=== PATIENT | female | born 1995 | race African-American/Black ===

== ENCOUNTER 2018-01-11 16:31 | Emergency (ER) | payer OTHER | END 2018-01-11 19:04 | disposition home or self-care (01) | LOC: M ED 16:31 | DX: O99.89 Other specified diseases and conditions complicating pregnancy, childbirth and the puerperium (principal); N90.7 Vulvar cyst; Z3A.00 Weeks of gestation of pregnancy not specified; Z79.899 Other long term (current) drug therapy | CPT/HCPCS: 99283 ==

== ENCOUNTER 2018-02-23 07:43 | Emergency (ER) | payer OTHER | END 2018-02-23 09:33 | disposition home or self-care (01) | LOC: M ED 07:43 | DX: O99.89 Other specified diseases and conditions complicating pregnancy, childbirth and the puerperium (principal); R22.41 Localized swelling, mass and lump, right lower limb; O99.413 Diseases of the circulatory system complicating pregnancy, third trimester; I87.2 Venous insufficiency (chronic) (peripheral); Z3A.35 35 weeks gestation of pregnancy | CPT/HCPCS: 93971 ==

== ENCOUNTER 2018-03-29 21:06 | Inpatient (IN) | payer OTHER ==
[2018-03-29] MEDS: PENICILLIN G POTASSIUM IV 5 MU in D5W MINI-BAG PLUS 100 ML IV (22:23)
[2018-03-29 22:25] LABS: BASO % 0.4 % (0.0-1.0); EOS # 0.1 10^3/uL (0.0-0.50); HEMOGLOBIN 10.4 g/dl (12.0-15.5); IMMATURE GRANULOCYTE % 0.7 % (0-3.0); LYMPH % 21.7 % (24.0-44.0); MEAN CORPUSCULAR HEMOGLOBIN 26.3 pg (27.0-33.0); MEAN CORPUSCULAR HGB CONC 32.5 g/dl (32.0-36.5); MONO # 1.2 10^3/uL (0.0-0.8); MONO % 12.9 % (0.0-5.0); NEUTROPHILS # 5.8 10^3/uL (1.8-7.7); NEUTROPHILS % 63.3 % (36.0-66.0); PLATELET COUNT, AUTOMATED 238 10^3/uL (150-450); RED BLOOD COUNT 3.95 10^6/uL (4.00-5.40); WHITE BLOOD COUNT 9.1 10^3/uL (4.0-10.0)
[2018-03-29 22:29] LABS: APPEARANCE, URINE HAZY (CLEAR); BACTERIA, URINE AUTO NEGATIVE (NEGATIVE); BILIRUBIN, URINE AUTO NEGATIVE (NEGATIVE); BLOOD, URINE BLOOD 3+ (NEGATIVE); COLOR, URINE YELLOW (YELLOW); GLUCOSE, URINE (UA) AUTO NEGATIVE (NEGATIVE); KETONE, URINE AUTO NEGATIVE (NEGATIVE); LEUKOCYTE ESTERASE, URINE AUTO NEGATIVE (NEGATIVE); MUCUS, URINE SMALL (NEGATIVE); NITRITE, URINE AUTO NEGATIVE (NEGATIVE); PROTEIN, URINE AUTO 3+ mg/dL (NEGATIVE); RBC, URINE AUTO 9 /HPF (0-3); SPECIFIC GRAVITY URINE AUTO 1.013 (1.002-1.035); SQUAMOUS EPITHELIAL CELL UR AU 2 /HPF (0-6); UROBILINOGEN, URINE AUTO 0.2 mg/dL (0.0-2.0); WBC, URINE AUTO 10 /HPF (0-3)
[2018-03-29 23:28] LABS: ALT/SGPT 12 U/L (12-78); AST/SGOT 13 U/L (7-37); BILIRUBIN,TOTAL 0.3 MG/DL (0.2-1.0); CREATININE FOR GFR 0.87 MG/DL (0.55-1.30); GLOMERULAR FILTRATION RATE > 60.0 (>60); LDH LACTATE DEHYDROGENASE 265 U/L (84-246)
[2018-03-30] MEDS ORDERED: FENTANYL 2MCG/ML ROPIVACAINE 0.2% IN 0.9% NACL 200ML IVBAG As Ordered (00:34)
[2018-03-30] MEDS ORDERED: REFRIGERATOR IV KEYS XX (03:00)
[2018-03-30] MEDS ORDERED: EPIDURAL/PCA KEYS XX (03:00)
[2018-03-30] MEDS ORDERED: NALOXONE INJ 0.4 MG/1 ML VIAL (J2310) IV ×3 (03:00→11:45)
[2018-03-30] MEDS: FENTANYL/ROPIVACAINE/NACL BAG 200 ML EPIDURAL (03:00)
[2018-03-30] MEDS ORDERED: diphenhydrAMINE INJ 50MG/ML VIAL (J1200) IV (03:00)
[2018-03-30] MEDS ORDERED: EPIDURAL COMMENT XX (03:00)
[2018-03-30] MEDS ORDERED: ePHEDrine SULFATE 25 MG/5 ML(5MG/ML) SYRINGE IV (03:00)
[2018-03-30] MEDS ORDERED: LACTATED RINGER'S 1000 ML IV (03:00)
[2018-03-30] MEDS: PENICILLIN G POTASSIUM IV 2.5 MU in APPROPRIATE DILUENT 1 EA IV ×2 (03:35→07:52)
[2018-03-30] MEDS: OXYTOCIN DRIP 30 UNITS in APPROPRIATE DILUENT 1 EA IV ×2 (03:51→13:08)
[2018-03-30] MEDS: LR 1,000 ML IV ×4 (03:57→17:13)
[2018-03-30] MEDS ORDERED: BICITRA 30ML SOLN UDC As Ordered (10:06)
[2018-03-30] MEDS ORDERED: ceFAZolin 2 GM/D5W 50 ML IV BAG (J0690 PER 500MG) As Ordered (10:06)
[2018-03-30] MEDS: BICITRA 30ML SOLN UDC PO (10:15)
[2018-03-30] MEDS ORDERED: LIDOCAINE 2% W/EPIN INJ 20ML **PRES FREE As Ordered (10:48)
[2018-03-30] MEDS ORDERED: OXYTOCIN INJ 10 UNITS/ML VIAL (J2590) As Ordered (10:48)
[2018-03-30] MEDS ORDERED: SODIUM BICARBONATE 8.4% INJ 50 ML SYRINGE As Ordered (10:48)
[2018-03-30] MEDS ORDERED: PHENYLephrine HCL 500 MCG/5 ML (100MCG/ML) SYRINGE (J2370) As Ordered (10:48)
[2018-03-30] MEDS ORDERED: MORPHINE PRES-FREE INJ 10 MG/10 ML VIAL (J2274) As Ordered (10:48)
[2018-03-30] MEDS ORDERED: ONDANSETRON 4MG/2ML VIAL (J2405) As Ordered (10:48)
[2018-03-30] MEDS ORDERED: KETOROLAC 60 MG/2 ML VIAL (J1885) As Ordered (10:48)
[2018-03-30] MEDS ORDERED: ePHEDrine SULFATE 25 MG/5 ML(5MG/ML) SYRINGE As Ordered (10:48)
[2018-03-30] MEDS ORDERED: dexameTHASONE 4 MG/ML 1ML VIAL (J1100) As Ordered (10:48)
[2018-03-30] MEDS ORDERED: MIDAZOLAM INJ 2 MG/2 ML VIAL (J2250) As Ordered (11:40)
[2018-03-30] MEDS ORDERED: KETAMINE HCL 200 MG/20 ML VIAL As Ordered (11:40)
[2018-03-30] MEDS ORDERED: METOCLOPRAMIDE INJ 10MG/2ML VIAL (J2765) IV (11:45)
[2018-03-30] MEDS ORDERED: NALBUPHINE HCL 10 MG/ML AMP (J2300) IV ×2 (11:45→12:45)
[2018-03-30] MEDS ORDERED: ONDANSETRON 4MG/2ML VIAL (J2405) IV ×2 (11:45→12:45)
[2018-03-30 11:47] LABS: CORD GAS ABE V -2.5; CORD GAS HCO3 V 24.2 MEQ/L; CORD GAS O2 SAT V 58.6 %; CORD GAS PH V 7.311 UNITS; CORD GAS PO2 V 25.8 mmHg; CORD GAS SBC V 21.4 MEQ/L; CORD GAS TCO2 V 25.7 MEQ/L
[2018-03-30] MEDS ORDERED: MEASLES,MUMPS,RUBELLA VACCINE INJ (MMR-II) (90707) SC (12:30)
[2018-03-30] MEDS: CARBOPROST TROMETHAMINE 250 MCG/ML AMP IM (12:30)
[2018-03-30] MEDS: miSOPROStol 200 MCG TAB (S0191) PR (12:30)
[2018-03-30] MEDS ORDERED: PERCOCET 5MG/325MG TAB PO ×2 (12:30→12:45)
[2018-03-30] MEDS ORDERED: LOPERAMIDE 2 MG CAP PO (12:30)
[2018-03-30] MEDS ORDERED: RHOGAM 300 MCG (1500 IU) INJ (J2790) IM (12:30)
[2018-03-30] MEDS ORDERED: MORPHINE 10 MG/ML 1ML VIAL (J2270) IV (12:45)
[2018-03-30] MEDS ORDERED: fentaNYL 100 MCG/2 ML INJECTION (J3010) IV (12:45)
[2018-03-30] MEDS ORDERED: PERCOCET 5MG/325MG TAB As Ordered (13:07)
[2018-03-30] MEDS: LOPERAMIDE 2 MG CAP PO (13:07)
[2018-03-30] MEDS: PERCOCET 5MG/325MG TAB PO ×2 (13:08→14:33)
[2018-03-30] MEDS: KETOROLAC 30 MG/ML VIAL (J1885) IV ×2 (16:58→23:03)
[2018-03-30] MEDS: LR 500 ML IV ×2 (19:50→22:52)
[2018-03-30] MEDS: DOCUSATE SODIUM 100 MG CAP PO (21:15)
[2018-03-30] MEDS: ONDANSETRON 4MG/2ML VIAL (J2405) IV (21:17)
[2018-03-31] MEDS: LR 500 ML IV ×2 (01:02)
[2018-03-31 01:05] LABS: BASO % 0.1 % (0.0-1.0); HEMATOCRIT 18.6 % (36.0-47.0); IMMATURE GRANULOCYTE % 0.8 % (0-3.0); LYMPH % 7.2 % (24.0-44.0); MEAN CORPUSCULAR HEMOGLOBIN 26.6 pg (27.0-33.0); MEAN CORPUSCULAR HGB CONC 32.8 g/dl (32.0-36.5); MEAN CORPUSCULAR VOLUME 81.2 fl (80.0-96.0); MONO % 7.4 % (0.0-5.0); NEUTROPHILS # 23.4 10^3/uL (1.8-7.7); NEUTROPHILS % 84.5 % (36.0-66.0); PLATELET COUNT, AUTOMATED 173 10^3/uL (150-450); RED BLOOD COUNT 2.29 10^6/uL (4.00-5.40); RED CELL DISTRIBUTION WIDTH 17.3 % (11.5-14.5); WHITE BLOOD COUNT 27.7 10^3/uL (4.0-10.0)
[2018-03-31 01:08] LABS: HEMOGLOBIN 6.1 g/dl (12.0-15.5); MONO # 2.1 10^3/uL (0.0-0.8); POSITIVE DIFF POS FLAG
[2018-03-31 01:39] LABS: ALBUMIN 1.8 GM/DL (3.2-5.2); ALBUMIN/GLOBULIN RATIO 0.67 (1.00-1.93); ALKALINE PHOSPHATASE 150 U/L (45-117); ALT/SGPT 16 U/L (12-78); ANION GAP 7 MEQ/L (8-16); AST/SGOT 32 U/L (7-37); BILIRUBIN,TOTAL 0.4 MG/DL (0.2-1.0); BLOOD UREA NITROGEN 17 MG/DL (7-18); CALCIUM LEVEL 7.6 MG/DL (8.5-10.1); CARBON DIOXIDE LEVEL 24 MEQ/L (21-32); CHLORIDE LEVEL 105 MEQ/L (98-107); CREATININE FOR GFR 1.19 MG/DL (0.55-1.30); GLOMERULAR FILTRATION RATE > 60.0 (>60); GLUCOSE, FASTING 98 MG/DL (70-100); POTASSIUM SERUM 5.3 MEQ/L (3.5-5.1); SODIUM LEVEL 136 MEQ/L (136-145); TOTAL PROTEIN 4.5 GM/DL (6.4-8.2)
[2018-03-31 01:41] LABS: IMMEDIATE SPIN CROSSMATCH 1 2
[2018-03-31] MEDS: ACETAMINOPHEN 325 MG TAB PO (02:03)
[2018-03-31] MEDS: diphenhydrAMINE INJ 50MG/ML VIAL (J1200) IV (02:03)
[2018-03-31] MEDS: KETOROLAC 30 MG/ML VIAL (J1885) IV (05:43)
[2018-03-31] MEDS: FENTANYL/ROPIVACAINE/NACL BAG 200 ML EPIDURAL (07:10)
[2018-03-31 07:30] LABS: HEMATOCRIT 21.8 % (36.0-47.0); HEMOGLOBIN 7.3 g/dl (12.0-15.5); MEAN CORPUSCULAR HEMOGLOBIN 27.2 pg (27.0-33.0); MEAN CORPUSCULAR HGB CONC 33.5 g/dl (32.0-36.5); MEAN CORPUSCULAR VOLUME 81.3 fl (80.0-96.0); PLATELET COUNT, AUTOMATED 149 10^3/uL (150-450); RED BLOOD COUNT 2.68 10^6/uL (4.00-5.40); RED CELL DISTRIBUTION WIDTH 15.9 % (11.5-14.5); WHITE BLOOD COUNT 20.9 10^3/uL (4.0-10.0)
[2018-03-31] MEDS: PRENATAL VITAMINS CHEWABLE TABLET PO (07:33)
[2018-03-31] MEDS: DOCUSATE SODIUM 100 MG CAP PO ×2 (07:33→19:36)
[2018-03-31] MEDS: LR 1,000 ML IV ×2 (07:34→13:57)
[2018-03-31] MEDS: ADACEL/BOOSTRIX VACCINE (DIPHTH/PERTUSS/ACELL/TETANUS)0.5ML SYR (90715) IM (07:50)
[2018-03-31] MEDS: PERCOCET 5MG/325MG TAB PO ×2 (09:50→19:37)
[2018-03-31 12:28] LABS: HEMATOCRIT 21.9 % (36.0-47.0); HEMOGLOBIN 7.5 g/dl (12.0-15.5); MEAN CORPUSCULAR HEMOGLOBIN 27.8 pg (27.0-33.0); MEAN CORPUSCULAR HGB CONC 34.2 g/dl (32.0-36.5); MEAN CORPUSCULAR VOLUME 81.1 fl (80.0-96.0); PLATELET COUNT, AUTOMATED 159 10^3/uL (150-450); RED CELL DISTRIBUTION WIDTH 16.2 % (11.5-14.5); WHITE BLOOD COUNT 18.9 10^3/uL (4.0-10.0)
[2018-03-31] MEDS: IBUPROFEN 800 MG TAB PO ×2 (13:59→21:50)
[2018-04-01] MEDS: IBUPROFEN 800 MG TAB PO ×3 (05:12→21:48)
[2018-04-01] MEDS: DOCUSATE SODIUM 100 MG CAP PO ×2 (09:00→21:47)
[2018-04-01] MEDS: PRENATAL VITAMINS CHEWABLE TABLET PO (09:37)
[2018-04-01] MEDS: PERCOCET 5MG/325MG TAB PO (21:48)
[2018-04-02] MEDS: IBUPROFEN 800 MG TAB PO (05:11)
[2018-04-02] MEDS: DOCUSATE SODIUM 100 MG CAP PO (10:34)
[2018-04-02] MEDS: PRENATAL VITAMINS CHEWABLE TABLET PO (10:34)
== END 2018-04-02 11:40 | disposition home or self-care (01) | DRG 766 ==
LOC: M LDO 21:06 → M LDI 21:49 → M OBS 03-30 14:00
PROC: 10D00Z1 Extraction of Products of Conception, Low, Open Approach (ICD-10-PCS; principal; 2018-03-29 10:38)
PROC: 30233N1 Transfusion of Nonautologous Red Blood Cells into Peripheral Vein, Percutaneous Approach (ICD-10-PCS; 2018-03-29 10:38)
DX: O14.04 Mild to moderate pre-eclampsia, complicating childbirth (principal); O99.824 Streptococcus B carrier state complicating childbirth; Z3A.40 40 weeks gestation of pregnancy; O99.02 Anemia complicating childbirth; O76 Abnormality in fetal heart rate and rhythm complicating labor and delivery; D64.9 Anemia, unspecified; O77.0 Labor and delivery complicated by meconium in amniotic fluid; O32.8XX0 Maternal care for other malpresentation of fetus, not applicable or unspecified; Z37.0 Single live birth